=== PATIENT | male | born 1985 | race American Indian/Alaskan Native ===

== ENCOUNTER 2018-10-20 06:59 | Emergency (ER) | payer SELFPAY ==
[2018-10-20 07:34] VITALS: BP 115/57
--- NOTE | 2018-10-20 08:59 | Emergency Department Report ---
Abscess Boil HPI - HPI Chief Complaint: Wound/Laceration Stated Complaint: ABSCESS ON TAILBONE Time Seen by Provider: 10/20/18 08:51 Duration: 1 Week Location: Sacral/Pilonidal Severity: Moderate History: Yes Pain, Yes Previous History, No Fever, No Purulent Drainage, No Numbness, No Foreign Body, No Insect Bite HPI: This is a 33-year-old male who presents to ED complaining of swelling and pain to his lower back buttock area for the past week. Patient states that to 3 days ago he started noticing the swelling got worse. He denies fever assess chills/nausea or vomiting.. Home Medications: Previous Rx's Medication Instructions Recorded Last Taken Type Clindamycin [Clindamycin CAP] 300 mg PO Q8H #30 cap 10/20/18 Unknown Rx Ibuprofen [Motrin] 800 mg PO Q8HR #30 tablet 10/20/18 Unknown Rx ED Review of Systems ROS: Stated complaint: ABSCESS ON TAILBONE Other details as noted in HPI Comment: All other systems reviewed and negative ED Past Medical Hx - Past Medical History Hx HIV: Yes - Social History Smoking Status: Current Every Day Smoker - Medications Home Medications: Home Medications Medication Instructions Recorded Confirmed Last Taken Type Clindamycin [Clindamycin CAP] 300 mg PO Q8H #30 cap 10/20/18 Unknown Rx Ibuprofen [Motrin] 800 mg PO Q8HR #30 tablet 10/20/18 Unknown Rx ED Abscess Boil Physical Exam - Exam General: Vital signs noted. No distress. Alert and acting appropriately. Front/Back of Body, Lg (Color): 1 - Greater than 5 cm, fluctuant, tender to palpation abscess at pilonidal region Size: >5 cm Exam: Yes Tenderness, Yes Fluctuance, Yes Normal Neurologic Exam, Yes Normal Circulation, No Surrounding Cellulites/Erythema, No Lymphangitis, No Crepitation, No Heart Murmur I & D Note - I & D Note I & D Note: Patient positioned appropriately, 15cc lidocaine with/without epinephrine was used as a local anesthetic. #11 blade scalpal used for single incision. Additional local anesthetic injected into surrounding viable tissue prior to blunt dissection of loculated adhesions. Copius drainage of pus . Wound packed with iodoform gauze. Procedure tolerated without complications. Wound dressed with sterile 4x4 guaze and paper tape. Pt tolerated procedure well. ED Course Vital Signs 10/20/18 07:31 Temperature 98.7 F Pulse Rate 75 Blood Pressure 115/57 O2 Sat by Pulse 96 Oximetry Critical care attestation.: If time is entered above; I have spent that time in minutes in the direct care of this critically ill patient, excluding procedure time. ED Medical Decision Making - Medical Decision Making 33-year-old male presents with pilonidal cyst See I&D note. Patient tolerated procedure well. Discussed the patient to return in 3 days for packing removal and wound check. Patient was sent instructions and will follow up. Patient sent to want antibiotics and pain medication. ED Disposition Clinical Impression: Pilonidal abscess Disposition: - TO HOME OR SELFCARE Is pt being admited?: No Does the pt Need Aspirin: No Condition: Stable Instructions: Abscess Incision and Drainage (ED), Abscess (ED) Additional Instructions: Make sure to follow up with the primary care physician as discussed. Take all your medications as you've been prescribed. If you have any worsening symptoms or develop new symptoms please return to ED immediately. Prescriptions: Clindamycin [Clindamycin CAP] 300 mg PO Q8H #30 cap Ibuprofen [Motrin] 800 mg PO Q8HR #30 tablet Referrals: PRIMARY CARE, [Primary Care Provider] - 3-5 Days [facility] [Outside] - 3-5 Days [facility] [Outside] - 3-5 Days Forms: Work/School Release Form(ED) Time of Disposition: 10:22
[2018-10-20] MEDS ORDERED: NORCO 5/325 PO ONE (09:00)
== END 2018-10-20 10:33 | disposition home or self-care (01) ==
LOC: ED 06:59
DX: L05.01 Pilonidal cyst with abscess (principal); F17.200 Nicotine dependence, unspecified, uncomplicated

== ENCOUNTER 2019-03-21 10:58 | Emergency (ER) | payer SELFPAY ==
--- NOTE | 2019-03-21 11:25 | Emergency Department Report ---
Blank Doc - Documentation Documentation: This is a 33-year-old male that presents with abscess to buttock area. This initial assessment/diagnostic orders/clinical plan/treatment(s) is/are subject to change based on patient's health status, clinical progression and re- assessment by fellow clinical providers in the ED. Further treatment and workup at subsequent clinical providers discretion. Patient/guardians urged not to elope from the ED as their condition may be serious if not clinically assessed and managed. Initial orders include: 1- Patient sent to MAIN ED for further evaluation and treatment
[2019-03-21 11:26] VITALS: BP 123/60
== END 2019-03-21 12:06 | disposition left against medical advice (07) ==
LOC: ED 10:58
DX: L02.31 Cutaneous abscess of buttock (principal); Z53.21 Procedure and treatment not carried out due to patient leaving prior to being seen by health care provider

== ENCOUNTER 2019-03-21 13:34 | Emergency (ER) | payer SELFPAY ==
[2019-03-21] MEDS ORDERED: NORCO 5/325 PO ONE (15:46)
--- NOTE | 2019-03-21 15:46 | Emergency Department Report ---
Abscess Boil HPI - HPI Duration: 5 Days Location: Sacral/Pilonidal Severity: Severe History: Yes Fever, No Pain, No Purulent Drainage, No Numbness, No Foreign Body, No Previous History, No Insect Bite HPI: This is a 33-year-old male who presents to the emergency room with the pilondial abscess for 5 days. Patient reports prior history and HIV positive. Patient states he is currently taking insulin as well as no improvement in symptoms. He denies drainage, fever, chills, numbness or tingling. <PHU CURRY - Last Filed: 03/21/19 19:06> <NICKI JJ - Last Filed: 03/22/19 00:16> - HPI Chief Complaint: Skin/Abscess/Foreign Body Stated Complaint: BOIL ON TAIL BONE Time Seen by Provider: 03/21/19 14:08 Home Medications: Previous Rx's Medication Instructions Recorded Last Taken Type Clindamycin [Clindamycin CAP] 300 mg PO Q8H #30 cap 10/20/18 Unknown Rx Ibuprofen [Motrin] 800 mg PO Q8HR #30 tablet 10/20/18 Unknown Rx Acetaminophen/Codeine [Tylenol 1 tab PO Q6H PRN #20 tab 03/22/19 Unknown Rx /Codeine # 3 tab] Clindamycin [Clindamycin CAP] 300 mg PO Q6HR #80 capsule 03/22/19 Unknown Rx Ibuprofen [Motrin] 800 mg PO Q8HR PRN #24 tablet 03/22/19 Unknown Rx Ondansetron [Zofran Odt] 4 mg PO Q6HR #15 tab.rapdis 03/22/19 Unknown Rx Sulfamethoxazole/Trimethoprim 1 each PO Q12H #20 tablet 03/22/19 Unknown Rx [Bactrim DS TAB] Allergies/Adverse Reactions: Allergies Allergy/AdvReac Type Severity Reaction Status Date / Time No Known Allergies Allergy Unverified 03/21/19 11:01 ED Review of Systems ROS: Stated complaint: BOIL ON TAIL BONE Other details as noted in HPI Constitutional: denies: chills, fever Respiratory: denies: cough, shortness of breath, wheezing Cardiovascular: denies: chest pain, palpitations Gastrointestinal: denies: abdominal pain, nausea, diarrhea Skin: lesions (pilondial abscess). denies: rash Neurological: denies: headache, weakness, paresthesias Psychiatric: denies: anxiety, depression <PHU CURRY - Last Filed: 03/21/19 19:06> ROS: Stated complaint: BOIL ON TAIL BONE Other details as noted in HPI <NICKI JJ - Last Filed: 03/22/19 00:16> ED Past Medical Hx - Past Medical History Hx HIV: Yes - Social History Smoking Status: Unknown if ever smoked Substance Use Type: None <PHU CURRY - Last Filed: 03/21/19 19:06> <NICKI JJ - Last Filed: 03/22/19 00:16> - Medications Home Medications: Home Medications Medication Instructions Recorded Confirmed Last Taken Type Clindamycin [Clindamycin CAP] 300 mg PO Q8H #30 cap 10/20/18 Unknown Rx Ibuprofen [Motrin] 800 mg PO Q8HR #30 tablet 10/20/18 Unknown Rx Acetaminophen/Codeine [Tylenol 1 tab PO Q6H PRN #20 tab 03/22/19 Unknown Rx /Codeine # 3 tab] Clindamycin [Clindamycin CAP] 300 mg PO Q6HR #80 capsule 03/22/19 Unknown Rx Ibuprofen [Motrin] 800 mg PO Q8HR PRN #24 tablet 03/22/19 Unknown Rx Ondansetron [Zofran Odt] 4 mg PO Q6HR #15 tab.rapdis 03/22/19 Unknown Rx Sulfamethoxazole/Trimethoprim 1 each PO Q12H #20 tablet 03/22/19 Unknown Rx [Bactrim DS TAB] ED Abscess Boil Physical Exam - Exam General: Vital signs noted. No distress. Alert and acting appropriately. Front/Back of Body, Lg (Color): 1 - 2 cm erythematous area, tenderness, no drainage Size: 2 cm Exam: Yes Tenderness, Yes Normal Neurologic Exam, Yes Normal Circulation, No Fluctuance, No Surrounding Cellulites/Erythema, No Lymphangitis, No Crepitation, No Heart Murmur <PHU CURRY - Last Filed: 03/21/19 19:06> - Exam General: Vital signs noted. No distress. Alert and acting appropriately. <NICKI JJ - Last Filed: 03/22/19 00:16> ED Course Vital Signs 03/21/19 13:43 Temperature 99.4 F Pulse Rate 80 Respiratory 18 Rate Blood Pressure 123/60 O2 Sat by Pulse 100 Oximetry <CURRY,PHU JACKSON - Last Filed: 03/21/19 19:06> Vital Signs 03/21/19 03/21/19 03/21/19 13:43 16:00 18:32 Temperature 99.4 F Pulse Rate 80 78 Respiratory 18 16 16 Rate Blood Pressure 123/60 Blood Pressure 120/59 [Left] O2 Sat by Pulse 100 97 Oximetry - Reevaluation(s) Reevaluation #1: 03/22/19 00:11 I assumed care of patient from my colleageu Ms. Ruperto Welchisha FINANCIAL PLANNING ANALYST at shift change. Patient had presented to the ED with pain in the pilonidal area with s welling. Labs were drawn in the ED. The laboratory test results showed acute leukocytosis of 15,500, and hyponatremia 131 mmol per liter. Patient received normal saline IV bolus, clindamycin 900 mg IV 1, Bactrim DS 1 tablet by mouth 1 and pain medications. On reevaluation, patient's pain is well controlled and the pilonidal abscess was incised and drained, packed and dressed appropriately. Patient was discharged home on pain medications and antibiotics and advised to follow-up with his primary care physician in 7-10 days for reevaluation. Patient is advised to return to the ED in 2 days for wound recheck and packing removal. Patient otherwise otherwise return to the ED immediately if symptoms get worse. subjective this is going to <NICKI JJ - Last Filed: 03/22/19 00:16> Critical care attestation.: If time is entered above; I have spent that time in minutes in the direct care of this critically ill patient, excluding procedure time. <PHU CURRY - Last Filed: 03/21/19 19:06> Critical care attestation.: If time is entered above; I have spent that time in minutes in the direct care of this critically ill patient, excluding procedure time. <NICKI JJ - Last Filed: 03/22/19 00:16> ED Medical Decision Making - Lab Data Result diagrams: 03/21/19 15:50 03/21/19 15:50 Lab Results 03/21/19 03/21/19 03/21/19 Range/Units 15:50 15:50 15:50 WBC 15.5 H (4.5-11.0) K/mm3 RBC 5.09 H (3.65-5.03) M/mm3 Hgb 15.9 H (11.8-15.2) gm/dl Hct 47.2 H (35.5-45.6) % MCV 93 (84-94) fl MCH 31 (28-32) pg MCHC 34 (32-34) % RDW 13.9 (13.2-15.2) % Plt Count 224 (140-440) K/mm3 Sodium 131 L (137-145) mmol/L Potassium 5.9 H (3.6-5.0) mmol/L Chloride 92.0 L (98-107) mmol/L Carbon Dioxide 22 (22-30) mmol/L Anion Gap 23 mmol/L BUN 7 L (9-20) mg/dL Creatinine 1.2 (0.8-1.5) mg/dL Estimated GFR > 60 ml/min BUN/Creatinine Ratio 6 % Glucose 99 (75-100) mg/dL Calcium 9.4 (8.4-10.2) mg/dL NT-Pro-B Natriuret Pep 7.41 (0-450) pg/mL - Medical Decision Making This patient was assisted by this provider. Vital signs stable. Labs are obtained and CT of abdomen and pelvis. IV Site initiated. Given morphine 4 by IV. Chart signed to ELIGIO Bradford. pending CT of abdomen and pelvis. <PHU CURRY - Last Filed: 03/21/19 19:06> - Lab Data Result diagrams: 03/21/19 15:50 03/21/19 19:21 - Radiology Data Radiology results: report reviewed, image reviewed CT abdomen pelvis w/contrast shows no acute pathology in abdomen and pelvis - Medical Decision Making I assumed care of patient from my colleageu Ms. Ruperto Gaines FINANCIAL PLANNING ANALYST at shift change. Patient had presented to the ED with pain in the pilonidal area with swelling. Labs were drawn in the ED. The laboratory test results showed acute leukocytosis of 15,500, and hyponatremia 131 mmol per liter. Patient received normal saline IV bolus, clindamycin 900 mg IV 1, Bactrim DS 1 tablet by mouth 1 and pain medications. Abdomen pelvis CT scan with oral contrast shows no acute abdomen or pelvis pathology including abscess or cellulitis. On reevaluation, patient's pain is well controlled and the pilonidal abscess was incised and drained, packed and dressed appropriately. Patient was discharged home on pain medications and antibiotics and advised to follow-up with his primary care physician in 7-10 days for reevaluation. Patient is advised to return to the ED in 2 days for wound recheck and packing removal. Patient otherwise otherwise return to the ED immediately if symptoms get worse. - Differential Diagnosis Pilonidal abscess; Cellulitis <NICKI JJ - Last Filed: 03/22/19 00:16> ED Disposition <PHU CURRY - Last Filed: 03/21/19 19:06> Is pt being admited?: No Does the pt Need Aspirin: No Time of Disposition: 00:02 <NICKI JJ - Last Filed: 03/22/19 00:16> Clinical Impression: Pilonidal cyst with abscess Disposition: - TO HOME OR SELFCARE Condition: Stable Instructions: Abscess Incision and Drainage (ED), Abscess (ED) Additional Instructions: Take medication with food, drink plenty of fluids and follow with your primary care physician is advised in 7-10 days for reevaluation. Return to the ED in 2 days for wound recheck and packing removal, or immediately if symptoms get worse. Prescriptions: Sulfamethoxazole/Trimethoprim [Bactrim DS TAB] 1 each PO Q12H #20 tablet Clindamycin [Clindamycin CAP] 300 mg PO Q6HR #80 capsule Ibuprofen [Motrin] 800 mg PO Q8HR PRN #24 tablet PRN Reason: Pain , Severe (7-10) Acetaminophen/Codeine [Tylenol /Codeine # 3 tab] 1 tab PO Q6H PRN #20 tab PRN Reason: Pain , Severe (7-10) Ondansetron [Zofran Odt] 4 mg PO Q6HR #15 tab.rapdis Referrals: [facility] [Outside] - 3-5 Days Print Language: YORUBA
[2019-03-21] MEDS ORDERED: MORPHINE IV ONE (15:48)
[2019-03-21 16:17] LABS: Hematocrit 47.2 % (35.5-45.6); Hemoglobin 15.9 gm/dl (11.8-15.2); Mean Corpuscular HGB Conc 34 % (32-34); Mean Corpuscular Volume 93 fl (84-94); Platelet Count 224 K/mm3 (140-440); Red Blood Count 5.09 M/mm3 (3.65-5.03); Red Cell Distribution Width 13.9 % (13.2-15.2)
[2019-03-21 18:33] VITALS: BP 120/59
[2019-03-21 18:33] LABS: BUN/Creatinine Ratio 6; Blood Urea Nitrogen 7 mg/dL (9-20); Calcium 9.4 mg/dL (8.4-10.2); Hemolysis Index 327
[2019-03-21] MEDS ORDERED: DILAUDID IV ONE (19:13)
[2019-03-21] MEDS ORDERED: CLEOCIN 900 MG/50 mL 900 MG/50 ML BAG IV ONE (19:13)
[2019-03-21] MEDS ORDERED: ZOFRAN IV ONE (19:13)
[2019-03-21] MEDS ORDERED: NACL 0.9% 1000 ML 1,000 ML IV ONE (19:14)
[2019-03-21 20:02] LABS: Alanine Aminotransferase 15 units/L (7-56); BUN/Creatinine Ratio 7; Blood Urea Nitrogen 7 mg/dL (9-20); Calcium 9.7 mg/dL (8.4-10.2); Hemolysis Index 7
[2019-03-21] MEDS ORDERED: XYLOCAINE 1% 20 mL INFILTRATI ONE (20:55)
--- NOTE | 2019-03-21 21:25 | Cat Scan Report ---
PROCEDURE: CT abdomen and pelvis with contrast. TECHNIQUE: Computerized axial tomography of the abdomen and pelvis was performed after the IV inject ion of iodinated nonionic contrast. CT DOSE LENGTH PRODUCT: 1843.8 mGycm HISTORY: abscess, r/o fistula COMPARISONS: None. FINDINGS: The lung bases are clear. There are no pleural effusions. The heart size is normal. The liver, pancre as and spleen appear normal. The gallbladder is present. There is no biliary dilatation. The adrenal glands are not enlarged. Both kidneys appear normal in size and configuration. The abdominal aorta garcia s a normal caliber. There is no retroperitoneal adenopathy. The unopacified gastrointestinal tract is unremarkable. A normal appendix is visible. There is a small umbilical hernia containing fat. The bl adder, seminal vesicles and prostate appear normal. There are no signs of an abdominal or pelvic absc ess. The regional skeleton appears intact. IMPRESSION: Small umbilical hernia containing fat. Otherwise normal studies of the abdomen and pelvis. This document is electronically signed by Aly Kong MD., March 21 2019 09:23:43 PM ET
[2019-03-21] MEDS ORDERED: ZOFRAN ODT PO ONE (23:42)
[2019-03-21] MEDS ORDERED: PERCOCET 5/325 PO ONE (23:43)
[2019-03-21] MEDS ORDERED: BACTRIM DS PO ONE (23:43)
== END 2019-03-22 00:20 | disposition home or self-care (01) ==
LOC: ED 13:34
DX: L05.01 Pilonidal cyst with abscess (principal); Z79.4 Long term (current) use of insulin; Z79.1 Long term (current) use of non-steroidal anti-inflammatories (NSAID); Z21 Asymptomatic human immunodeficiency virus [HIV] infection status
CPT/HCPCS: 10080; 36415; 74177; 80048; 80053; 83880; 85027; 87040; 87116; 96365; 96375; 99284; J1170; J2270; J2405; J7030; Q9967; Q0162

== ENCOUNTER 2019-09-06 09:06 | Emergency (ER) | payer SELFPAY ==
[2019-09-06] MEDS ORDERED: methylPREDNISolone Sod Succinate 125 MG/2 ML INJ IM ONE (10:54)
--- NOTE | 2019-09-06 11:31 | Emergency Department Report ---
ED Allergic Reaction HPI - General Chief complaint: Allergic Reaction Stated complaint: ALLERGIC REACTION Time Seen by Provider: 09/06/19 10:30 Source: patient Mode of arrival: Ambulatory Limitations: No Limitations - History of Present Illness Initial Comments: 34-year-old male presents to ED for allergic reaction after taking his brothers Bactrim. Patient states he took the Bactrim because his brother stated that it would help to prevent jacob the flu. Patient states after taking the Bactrim, he began to have itching all over, sensation of his throat closing, and facial swelling. He denies any nausea or vomiting. Patient reports he took Benadryl prior to arrival, he reports that his facial swelling has resolved. States he still feels a slight itchiness in his throat. MD Complaint: allergic reaction -: This morning Exposure: medication Symptoms: itching, facial swelling, other (sensation of throat closing) Severity: moderate Treatment Prior to Arrival: benadryl Previous Allergy History: none - Related Data Previous Rx's Medication Instructions Recorded Last Taken Type Clindamycin [Clindamycin CAP] 300 mg PO Q8H #30 cap 10/20/18 Unknown Rx Ibuprofen [Motrin] 800 mg PO Q8HR #30 tablet 10/20/18 Unknown Rx Acetaminophen/Codeine [Tylenol 1 tab PO Q6H PRN #20 tab 03/22/19 Unknown Rx /Codeine # 3 tab] Clindamycin [Clindamycin CAP] 300 mg PO Q6HR #80 capsule 03/22/19 Unknown Rx Ibuprofen [Motrin] 800 mg PO Q8HR PRN #24 tablet 03/22/19 Unknown Rx Ondansetron [Zofran Odt] 4 mg PO Q6HR #15 tab.rapdis 03/22/19 Unknown Rx Sulfamethoxazole/Trimethoprim 1 each PO Q12H #20 tablet 03/22/19 Unknown Rx [Bactrim DS TAB] EPINEPHrine [Epipen] 0.3 mg IJ ONCE #1 auto.injct 09/06/19 Unknown Rx predniSONE [Deltasone] 50 mg PO QDAY #5 tab 09/06/19 Unknown Rx Allergies Allergy/AdvReac Type Severity Reaction Status Date / Time Sulfa (Sulfonamide Allergy Hives Verified 09/06/19 09:14 Antibiotics) ED Review of Systems ROS: Stated complaint: ALLERGIC REACTION Other details as noted in HPI Comment: All other systems reviewed and negative ENT: other (sensation of throat closing) Gastrointestinal: denies: nausea, vomiting Skin: pruritus ED Past Medical Hx - Past Medical History Previous Medical History?: Yes Hx HIV: Yes - Social History Smoking Status: Never Smoker - Medications Home Medications: Home Medications Medication Instructions Recorded Confirmed Last Taken Type Clindamycin [Clindamycin CAP] 300 mg PO Q8H #30 cap 10/20/18 Unknown Rx Ibuprofen [Motrin] 800 mg PO Q8HR #30 tablet 10/20/18 Unknown Rx Acetaminophen/Codeine [Tylenol 1 tab PO Q6H PRN #20 tab 03/22/19 Unknown Rx /Codeine # 3 tab] Clindamycin [Clindamycin CAP] 300 mg PO Q6HR #80 capsule 03/22/19 Unknown Rx Ibuprofen [Motrin] 800 mg PO Q8HR PRN #24 tablet 03/22/19 Unknown Rx Ondansetron [Zofran Odt] 4 mg PO Q6HR #15 tab.rapdis 03/22/19 Unknown Rx Sulfamethoxazole/Trimethoprim 1 each PO Q12H #20 tablet 03/22/19 Unknown Rx [Bactrim DS TAB] EPINEPHrine [Epipen] 0.3 mg IJ ONCE #1 auto.injct 09/06/19 Unknown Rx predniSONE [Deltasone] 50 mg PO QDAY #5 tab 09/06/19 Unknown Rx ED Physical Exam - General Limitations: No Limitations General appearance: alert, in no apparent distress - Head Head exam: Present: atraumatic, normocephalic - Eye Eye exam: Present: normal appearance, EOMI. Absent: periorbital swelling - ENT ENT exam: Present: normal orophraynx (no swelling present), mucous membranes moist - Neck Neck exam: Present: normal inspection - Respiratory Respiratory exam: Present: normal lung sounds bilaterally. Absent: respiratory distress, wheezes, stridor - Cardiovascular Cardiovascular Exam: Present: regular rate, normal rhythm - GI/Abdominal GI/Abdominal exam: Absent: distended - Extremities Exam Extremities exam: Present: normal inspection - Neurological Exam Neurological exam: Present: alert, oriented X3 - Psychiatric Psychiatric exam: Present: normal affect, normal mood - Skin Skin exam: Present: warm, dry, intact, normal color. Absent: rash ED Course Vital Signs 09/06/19 09/06/19 09/06/19 09:10 11:34 11:40 Temperature 97.3 F L 98.7 F Pulse Rate 96 H 66 70 Respiratory 20 17 16 Rate Blood Pressure 130/75 105/59 Blood Pressure 106/80 [Left] O2 Sat by Pulse 98 99 99 Oximetry ED Medical Decision Making - Medical Decision Making 34 year old male with allergic reaction to Bactrim. Patient symptoms have currently resolved. He is in no respiratory distress.. No stridor present. O2 sats normal. Patient took Benadryl prior to ED arrival. Solu-Medrol given here in ED. Patient advised against taking Bactrim in the future. Also advised against taking other people's medications. Outpatient follow-up advised. Return precautions given. - Differential Diagnosis allergic reaction Critical care attestation.: If time is entered above; I have spent that time in minutes in the direct care of this critically ill patient, excluding procedure time. ED Disposition Clinical Impression: Allergic reaction Disposition: [id number]-01 TO HOME OR SELFCARE Is pt being admited?: No Condition: Stable Instructions: Antibiotic Medication Allergy (ED) Prescriptions: predniSONE [Deltasone] 50 mg PO QDAY #5 tab EPINEPHrine [Epipen] 0.3 mg IJ ONCE #1 auto.injct Referrals: PRIMARY CARE, [Primary Care Provider] - 3-5 Days [facility] [Provider Group] - 3-5 Days Time of Disposition: 11:30
[2019-09-06 11:40] VITALS: BP 106/80
== END 2019-09-06 11:40 | disposition home or self-care (01) ==
LOC: ED 09:06
DX: T78.40XA Allergy, unspecified, initial encounter (principal); Y92.89 Other specified places as the place of occurrence of the external cause
CPT/HCPCS: 96372; 99283; J2930